=== PATIENT | male | born 1955 | race Caucasian/White ===

== ENCOUNTER 2019-09-04 06:00 | Inpatient (IN) ==
[~2019-09-04 06:00] MED LIST: Ketorolac Inj 30 MG, Morphine Inj (Ortho Cocktail) 4 MG, BUPivacaine Inj 0.25% PF 150 MG SPLASH ONE; LIDOCAINE W/ SODIUM BICARB 0.5 ML SYR ONE; LIDOCAINE W/ SODIUM BICARB 0.5 ML SYR SUBD ONE; Lactated Ringers 1,000 ML PRIMARY IV ONE; Lactated Ringers 1,000 ML PRIMARY IV SCH; Nasal Sanitizer POPSWAB ampule 3 AMP (Nozin) PREOP DOSE ENOS SCH; Tranexamic Acid 1,000 MG in Sodium Chloride 0.9% 100 ML IV SCH; ceFAZolin Inj 2gm (Premix) 2 GM/50 ML BAG IV ONE
[2019-09-04 06:22] LABS: BILIRUBIN,URINE NEGATIVE (NEG); CLARITY,URINE CLEAR (CLEAR); COLOR,URINE YELLOW (Y); GLUCOSE, URINE (UA) NEGATIVE (NEG); OCCULT BLOOD,URINE Trace-intact (NEG); PH,URINE 5.5 (5.0-8.5); PROTEIN,URINE NEGATIVE (NEG); UROBILINOGEN,URINE 0.2 EU/dL (0.2)
[2019-09-04 06:28] LABS: RBC,URINE 0 /hpf; URINE SAMPLE TYPE CLEAN CATCH URINE; WBC,URINE 0-1
[2019-09-04] MEDS ORDERED: Sodium Chloride 0.9% 0 ML ONE (07:02)
[2019-09-04] MEDS ORDERED: Sodium Chloride 0.9% 2,000 ML PRIMARY IV ONE (07:03)
[2019-09-04] MEDS ORDERED: MIDAZOLAM HCL 2 MG/2 ML VIAL ONE ×2 (07:07→07:26)
[2019-09-04] MEDS ORDERED: fentaNYL Inj 100 MCG/2 ML VIAL ONE ×2 (07:08→07:27)
[2019-09-04] MEDS ORDERED: BUPivacaine Liposome/PF (Exparel) Inj 20ml vial INFIL ONE ×2 (07:08→09:05)
[2019-09-04] MEDS ORDERED: BUPivacaine Inj 0.5% PF (5mg/ml) 30ml vial ONE (07:08)
[2019-09-04] MEDS ORDERED: Sodium Chloride 0.9% vial 20 ML ONE ×2 (07:09→09:04)
[2019-09-04] MEDS ORDERED: BACITRACIN 50,000 UNIT VIAL IRRIG ONE (07:09)
[2019-09-04] MEDS ORDERED: LIDOCAINE MPF 2% - 5 ML (20 MG/1 ML) ONE (07:30)
[2019-09-04] MEDS ORDERED: ONDANSETRON 4 MG/2 ML VIAL ONE (07:30)
[2019-09-04] MEDS ORDERED: Propofol 1,000 MG/100 ML VIAL IV ONE (07:30)
[2019-09-04] MEDS ORDERED: PROPOFOL 10 MG/1 ML (200 MG/20 ML) VIAL IV ONE (07:30)
[2019-09-04] MEDS ORDERED: KETOROLAC 30 MG/1 ML VIAL ONE (07:30)
[2019-09-04] MEDS ORDERED: TRANEXAMIC ACID 1,000 MG / 10 ML VIAL ONE (07:30)
[2019-09-04] MEDS ORDERED: Prochlorperazine Tab 10 MG TAB PO PRN ×2 (11:34→12:05)
[2019-09-04] MEDS ORDERED: oxyCODONE/APAP 7.5/325 Tab 1 TAB TAB PO PRN (11:34)
[2019-09-04] MEDS ORDERED: CALCIUM CARBONATE 500 MG (TUMS) CHEWABLE TABLET PO PRN ×2 (11:34→12:05)
[2019-09-04] MEDS ORDERED: ACETAMINOPHEN 325 MG TABLET PO PRN ×2 (11:34→12:05)
[2019-09-04] MEDS ORDERED: Ondansetron ODT Tab 8 MG TAB PO PRN ×2 (11:34→12:05)
[2019-09-04] MEDS ORDERED: BISACODYL 5 MG TABLET PO PRN (11:34)
[2019-09-04] MEDS ORDERED: MORPHINE SULFATE 2 MG/1 ML IVP PRN ×3 (11:34→12:05)
[2019-09-04] MEDS ORDERED: ONDANSETRON 4 MG/2 ML VIAL IVP PRN ×2 (11:34→12:05)
[2019-09-04] MEDS ORDERED: BISACODYL 10 MG SUPPOSITORY RECTAL PRN ×2 (11:34→12:05)
[2019-09-04] MEDS ORDERED: MAG HYDROX/AL HYDROX/SIMETH 30 ML SUSP PO PRN ×2 (11:34→12:05)
[2019-09-04] MEDS ORDERED: diphenhydrAMINE 25 MG CAPSULE PO PRN ×2 (11:34→12:05)
[2019-09-04] MEDS ORDERED: LIDOCAINE HCL 2 % 10 ML JELLY URO-JECT TOPICAL PRN (11:34)
[2019-09-04] MEDS ORDERED: CELECOXIB 200 MG CAPSULE PO PRN ×2 (11:34→12:05)
[2019-09-04] MEDS ORDERED: Meperidine Inj 50 MG/ML CARPUJECT IVP PRN (11:42)
[2019-09-04] MEDS ORDERED: LIDOCAINE W/ SODIUM BICARB 0.5 ML SYR SUBD PRN (11:42)
[2019-09-04] MEDS ORDERED: HYDROmorphone 2 MG/1 ML IVP PRN (11:42)
[2019-09-04] MEDS ORDERED: fentaNYL Inj 100 MCG/2 ML VIAL IVP PRN (11:42)
[2019-09-04] MEDS ORDERED: Lactated Ringers 1,000 ML PRIMARY IV SCH (11:45)
[2019-09-04] MEDS ORDERED: D5-1/2NS + 20mEq KCL 1,000 ML PRIMARY IV SCH (11:45)
[2019-09-04] MEDS ORDERED: ceFAZolin Inj 2gm (Premix) 2 GM/50 ML BAG IV SCH (11:45)
[2019-09-04] MEDS: D5-1/2NS + 20mEq KCL 1,000 ML PRIMARY IV SCH ×2 (13:22→22:19)
[2019-09-04] MEDS: ceFAZolin Inj 2gm (Premix) 2 GM/50 ML BAG IV SCH (15:38)
[2019-09-04] MEDS: oxyCODONE/APAP 7.5/325 Tab 1 TAB TAB PO PRN ×2 (16:31→20:30)
[2019-09-04] MEDS: DOCUSATE 100 MG CAPSULE PO SCH (20:30)
[2019-09-04] MEDS: TAMSULOSIN 0.4 MG CAPSULE PO SCH (20:30)
[2019-09-04] MEDS ORDERED: DOCUSATE 100 MG CAPSULE PO SCH (21:00)
[2019-09-05] MEDS: ceFAZolin Inj 2gm (Premix) 2 GM/50 ML BAG IV SCH (00:34)
[2019-09-05] MEDS: oxyCODONE/APAP 7.5/325 Tab 1 TAB TAB PO PRN ×7 (00:34→21:06)
[2019-09-05 05:07] LABS: Hematocrit [HCT] 39.8 % (42.0-52.0); Hemoglobin [HGB] 13.4 g/dL (14.0-18.0); MEAN CORPUSCULAR HGB CONC 33.7 g/dL (33-37); MEAN CORPUSCULAR VOLUME 92.8 FL (80-90); MEAN PLATELET VOLUME 9.2 FL (7.4-12.2); RED BLOOD COUNT 4.29 10^6/uL (4.70-6.10)
[2019-09-05 05:20] LABS: BLOOD UREA NITROGEN 15 mg/dL (7-22); BUN/CREATININE RATIO 18.75 (6-20)
[2019-09-05] MEDS: CHLORTHALIDONE 50 MG TABLET PO SCH (09:07)
[2019-09-05] MEDS: DOCUSATE 100 MG CAPSULE PO SCH ×2 (09:07→21:03)
[2019-09-05] MEDS: LOSARTAN 50 MG TABLET PO SCH (09:08)
[2019-09-05] MEDS: ASPIRIN EC 81 MG TABLET PO SCH (09:45)
[2019-09-05] MEDS: TAMSULOSIN 0.4 MG CAPSULE PO SCH (21:03)
[2019-09-05 23:05] LABS: BILIRUBIN,URINE NEGATIVE (NEG); CLARITY,URINE CLEAR (CLEAR); COLOR,URINE YELLOW (Y); GLUCOSE, URINE (UA) NEGATIVE (NEG); OCCULT BLOOD,URINE NEGATIVE (NEG); PROTEIN,URINE NEGATIVE (NEG); UROBILINOGEN,URINE 0.2 EU/dL (0.2)
[2019-09-05 23:06] LABS: URINE SAMPLE TYPE CLEAN CATCH URINE
[2019-09-05] MEDS: Phenazopyridine Tab 100 MG TAB PO SCH (23:09)
[2019-09-06] MEDS: oxyCODONE/APAP 7.5/325 Tab 1 TAB TAB PO PRN ×5 (01:29→20:23)
[2019-09-06 05:30] LABS: Hematocrit [HCT] 36.2 % (42.0-52.0); Hemoglobin [HGB] 12.3 g/dL (14.0-18.0); MEAN CORPUSCULAR VOLUME 92.3 FL (80-90); MEAN PLATELET VOLUME 9.3 FL (7.4-12.2); RED BLOOD COUNT 3.92 10^6/uL (4.70-6.10)
[2019-09-06] MEDS: LOSARTAN 50 MG TABLET PO SCH (09:32)
[2019-09-06] MEDS: CHLORTHALIDONE 50 MG TABLET PO SCH (09:32)
[2019-09-06] MEDS: BISACODYL 5 MG TABLET PO PRN (09:33)
[2019-09-06] MEDS: ASPIRIN EC 81 MG TABLET PO SCH (09:33)
[2019-09-06] MEDS: Phenazopyridine Tab 100 MG TAB PO SCH ×2 (09:33→19:12)
[2019-09-06] MEDS: DOCUSATE 100 MG CAPSULE PO SCH ×2 (09:33→19:13)
[2019-09-06] MEDS: TAMSULOSIN 0.4 MG CAPSULE PO SCH (19:12)
[2019-09-07 06:48] VITALS: BP 119/80; RESP 17; TEMP 98.1; O2SAT 92
[2019-09-07] MEDS: CHLORTHALIDONE 50 MG TABLET PO SCH (09:25)
[2019-09-07] MEDS: DOCUSATE 100 MG CAPSULE PO SCH (09:25)
[2019-09-07] MEDS: BISACODYL 5 MG TABLET PO PRN (09:25)
[2019-09-07] MEDS: Phenazopyridine Tab 100 MG TAB PO SCH (09:25)
[2019-09-07] MEDS: ASPIRIN EC 81 MG TABLET PO SCH (09:25)
[2019-09-07] MEDS: LOSARTAN 50 MG TABLET PO SCH (09:26)
== END 2019-09-07 12:50 | disposition home or self-care (01) | DRG 470 ==
LOC: OPS 06:00 → MED/SURG 12:10
PROVIDERS: ADMIT Orthopaedic Surgery; ATTEND Orthopaedic Surgery